=== PATIENT | female | born 1955 | race Caucasian/White ===

== ENCOUNTER 2018-11-19 19:34 | Emergency (ER) | payer OTHER ==
[~2018-11-19] VITALS: Ht 167.6 cm; Wt 68.0 kg
[~2018-11-19 19:34] MED LIST: ALBU90OI INH; AMOX500 PO; BENZ100A PO; BUSP5 PO; CITA20 PO; CYCL10 PO; Cleocin HCl300 MG PO; Crutch1 EACH MISC; DIPH50 PO; DOXY100 PO; HYDACE5 PO; HYDR1TAB94 PO; IBUP600 PO; Norco 5-325 Ta1 EACH PO; OMEP20ER PO; OXYACE5T PO; PRED20 PO; Pepcid40 MG PO; Percocet 5-3251 EACH PO; Ultram50 MG PO; Valium5 MG PO; Zithromax250 MG PO; [UNRECOGNIZED DRUG - REMARK]
== END 2018-11-19 20:36 | disposition home or self-care (01) ==
LOC: ER 19:34
DX: S61.012A Laceration without foreign body of left thumb without damage to nail, initial encounter (principal); F32.9 Major depressive disorder, single episode, unspecified; Z87.891 Personal history of nicotine dependence; Z88.5 Allergy status to narcotic agent; Z88.1 Allergy status to other antibiotic agents; Z79.899 Other long term (current) drug therapy; W26.0XXA Contact with knife, initial encounter
CPT/HCPCS: 12001; 99282-25

== ENCOUNTER 2021-04-22 08:08 | Day surgery (SDC) | payer OTHER ==
[~2021-04-22] VITALS: Ht 167.6 cm; Wt 71.8 kg
[2021-04-22] MEDS ORDERED: METR500 PO (09:21)
[2021-04-22] MEDS ORDERED: Buspirone HCl15 MG PO (09:21)
[2021-04-22] MEDS ORDERED: RIZATRIPTAN5 MG PO (09:21)
[2021-04-22] MEDS ORDERED: Celexa20 MG PO (09:22)
--- NOTE | 2021-04-22 09:22 | NUR ---
04/22/21 0922 Raghav Quigley & TORSTEN USED DURING PROCEDURE AT [facility] BY DR MENDOZA
[2021-04-22] MEDS ORDERED: Hydroxyzine HCl25 MG PO (09:23)
[2021-04-22] MEDS ORDERED: ROSU5 PO (09:23)
--- NOTE | 2021-04-22 11:17 | NUR ---
04/22/21 1117 MANDIE CHINCHILLA PT VOIDED WOUT PROBLEMS OR PROMTING, PRIOR TO DC 100CC CLEAR COPIOUS URINE VISUALIZED BY RN. END NOTE.ORSC
== END 2021-04-22 10:35 | disposition home or self-care (01) ==
LOC: ORSCSDS 08:08
PROVIDERS: Obstetrics & Gynecology
PROC: 0UBC7ZX Excision of Cervix, Via Natural or Artificial Opening, Diagnostic (ICD-10-PCS; principal; 2021-04-22 09:15)
DX: D06.9 Carcinoma in situ of cervix, unspecified (principal); N86 Erosion and ectropion of cervix uteri; K21.9 Gastro-esophageal reflux disease without esophagitis; F17.210 Nicotine dependence, cigarettes, uncomplicated; F41.8 Other specified anxiety disorders; Z79.899 Other long term (current) drug therapy
CPT/HCPCS: 88305; 88341; 88342; J1885; J2250; J2370; J2704; J3010; J7120

== ENCOUNTER 2021-05-27 11:17 | Day surgery (SDC) | payer OTHER ==
[2021-05-26 13:25] LABS: BASOPHILS ABSOLUTE AUTO 0.07 K/mm3 (0.00-0.23); BASOPHILS PERCENT AUTO 1 % (0-2); EOSINOPHILS ABSOLUTE AUTO 0.31 K/mm3 (0.00-0.68); EOSINOPHILS PERCENT AUTO 5 % (0-6); Hematocrit 42.6 % (33.0-51.0); Hemoglobin 13.9 g/dL (11.5-16.0); IMMATURE GRAN ABSOLUTE AUTO 0.01 K/mm3 (0.00-0.10); IMMATURE GRAN PERCENT AUTO 0 % (0-1); LYMPHOCYTES ABSOLUTE AUTO 2.29 K/mm3 (0.84-5.20); LYMPHOCYTES PERCENT AUTO 40 % (21-46); MONOCYTES ABSOLUTE AUTO 0.35 K/mm3 (0.16-1.47); MONOCYTES PERCENT AUTO 6 % (4-13); Mean Corpuscular HGB 34.5 pg (26.0-34.0); Mean Corpuscular HGB Conc 32.6 g/dL (31.5-36.5); Mean Corpuscular Volume 106 fL (80-100); Mean Platelet Volume 9.5 fL (9.1-12.4); NEUTROPHILS ABSOLUTE AUTO 2.75 K/mm3 (1.96-9.15); NEUTROPHILS PERCENT AUTO 48 % (41-73); Platelet Count 366 K/mm3 (150-400); RDW Coefficient Variation 12.4 % (11.7-14.2); RDW Standard Deviation 48.7 fL (35.1-46.3); Red Blood Cell Count 4.03 M/mm3 (3.80-5.20); White Blood Cell Count 5.78 K/mm3 (4.00-11.30)
[2021-05-26 15:12] LABS: Anion Gap 8 mmol/L (6-16); Blood Urea Nitrogen 11 mg/dL (8-24); Bun/Creatinine Ratio 13.1 (12.0-20.0); CO2, Blood 24 mmol/L (21-32); Chloride, Blood 106 mmol/L (98-108); Creatinine, Blood 0.84 mg/dL (0.40-1.00); Glomerular Filtration Rate >60 (60-); Glucose, Blood 107 mg/dL (70-99); Potassium, Blood 4.2 mmol/L (3.5-5.5); Sodium, Blood 138 mmol/L (136-145)
[~2021-05-27] VITALS: Ht 167.6 cm; Wt 70.8 kg
[~2021-05-27 11:17] MED LIST changes: +Buspirone HCl15 MG PO; +Celexa20 MG PO; +Hydroxyzine HCl25 MG PO; +METR500 PO; +RIZATRIPTAN5 MG PO; +ROSU5 PO
[2021-05-27] MEDS ORDERED: MULVITA PO (12:35)
--- NOTE | 2021-05-27 12:38 | NUR ---
Ambulatory in Day Surgery. History, Chart, Medications and Allergies reviewed before start of procedure.Lungs clear T/O to Auscultation. Patient confirms NPO status and agrees with scheduled surgery. Pre-Op teaching done. Pt verbalizes understanding. Patient States Post-Procedure ride home has been arranged.
--- NOTE | 2021-05-27 13:06 | NUR ---
Ambulatory in Day Surgery History, Chart, Medications and Allergies reviewed before start of procedure. Lungs clear T/O to Auscultation. Patient confirms NPO status and agrees with scheduled surgery. Pre-Op teaching done. Pt verbalizes understanding. PT'S AT SIDE:GERDA Urbina".
--- NOTE | 2021-05-27 17:00 | NUR ---
PT PROCEDURE ABORTED BY DR LEEANNA CONFIRMED THAT SHE WILLCALL PT TOMORROW TO DISCUSS PROCEDURE AND OPTIONS PT GIVEN DISCHARGE INSTRUCTIONS AND PO PAIN MED PT SITES ABD C/D/I Discharge instructions reviewed with patient. Patient verbalizes understanding. Copy given to patient to take home. Patient States Post-Procedure ride home has been arranged. Discharged via wheelchair to private car for ride home.
--- NOTE | 2021-06-01 10:30 | NUR ---
06/01/21 1030 Amaris Pérez VERIFICATIONS: EDIT CHART.
== END 2021-05-27 23:33 | disposition home or self-care (01) ==
LOC: ORSCMMR 11:17 → ORD 12:30 → ORSCMMR 23:33
PROVIDERS: Obstetrics & Gynecology
PROC: 0UJD4ZZ Inspection of Uterus and Cervix, Percutaneous Endoscopic Approach (ICD-10-PCS; principal; 2021-05-27 12:30)
DX: C53.0 Malignant neoplasm of endocervix (principal); N88.2 Stricture and stenosis of cervix uteri; N81.5 Vaginal enterocele; N99.71 Accidental puncture and laceration of a genitourinary system organ or structure during a genitourinary system procedure; F17.210 Nicotine dependence, cigarettes, uncomplicated; K21.9 Gastro-esophageal reflux disease without esophagitis; Z79.899 Other long term (current) drug therapy
CPT/HCPCS: 36415; 80048; 84703; 85025; 86850; 86900; 86901; A9270; J0690; J1100; J1885; J2250; J2405; J2704; J2710; J3010; J7120

== ENCOUNTER 2022-09-09 12:28 | Emergency (ER) | payer OTHER ==
[~2022-09-09] VITALS: Ht 167.6 cm; Wt 68.0 kg
[~2022-09-09 12:28] MED LIST changes: +MULVITA PO
[2022-09-09 12:44] VITALS: BP 138/78
[2022-09-09] MEDS ORDERED: HYDR1TAB94 PO (13:24)
== END 2022-09-09 13:26 | disposition home or self-care (01) ==
LOC: ER 12:28
DX: S29.011A Strain of muscle and tendon of front wall of thorax, initial encounter (principal); Z85.41 Personal history of malignant neoplasm of cervix uteri; Z88.5 Allergy status to narcotic agent; Z91.048 Other nonmedicinal substance allergy status; Z87.891 Personal history of nicotine dependence; X50.1XXA Overexertion from prolonged static or awkward postures, initial encounter
CPT/HCPCS: 71101; 99283-25

== ENCOUNTER 2023-04-07 09:14 | Emergency (ER) | payer OTHER ==
[~2023-04-07] VITALS: Ht 167.6 cm; Wt 69.0 kg
[2023-04-07 10:38] LABS: BASOPHILS ABSOLUTE AUTO 0.04 K/mm3 (0.00-0.23); BASOPHILS PERCENT AUTO 1 % (0-2); EOSINOPHILS ABSOLUTE AUTO 0.41 K/mm3 (0.00-0.68); EOSINOPHILS PERCENT AUTO 5 % (0-6); Hematocrit 47.3 % (33.0-51.0); Hemoglobin 15.8 g/dL (11.5-16.0); IMMATURE GRAN ABSOLUTE AUTO 0.03 K/mm3 (0.00-0.10); IMMATURE GRAN PERCENT AUTO 0 % (0-1); LYMPHOCYTES ABSOLUTE AUTO 1.22 K/mm3 (0.84-5.20); LYMPHOCYTES PERCENT AUTO 14 % (21-46); MONOCYTES ABSOLUTE AUTO 0.57 K/mm3 (0.16-1.47); MONOCYTES PERCENT AUTO 7 % (4-13); Mean Corpuscular HGB 35.6 pg (26.0-34.0); Mean Corpuscular HGB Conc 33.4 g/dL (31.5-36.5); Mean Corpuscular Volume 107 fL (80-100); Mean Platelet Volume 9.8 fL (9.1-12.4); NEUTROPHILS ABSOLUTE AUTO 6.43 K/mm3 (1.96-9.15); NEUTROPHILS PERCENT AUTO 74 % (41-73); Platelet Count 285 K/mm3 (150-400); RDW Coefficient Variation 11.9 % (11.7-14.2); RDW Standard Deviation 46.9 fL (35.1-46.3); Red Blood Cell Count 4.44 M/mm3 (3.80-5.20)
[2023-04-07 10:58] LABS: Bun/Creatinine Ratio 16.7 (12.0-20.0); Calcium, Blood 9.2 mg/dL (8.5-10.1); Creatinine, Blood 0.78 mg/dL (0.40-1.00); Potassium, Blood 4.2 mmol/L (3.5-5.5)
[2023-04-07 11:55] LABS: Influenza A, PCR NEGATIVE (NEGATIVE); Influenza B, PCR NEGATIVE (NEGATIVE); SARS-Cov-2 (COVID-19) PCR, MMC NEGATIVE (NEGATIVE)
[2023-04-07 11:56] LABS: Resp Syncytial Virus, PCR POSITIVE (NEGATIVE)
[2023-04-07 12:23] VITALS: BP 133/67
[2023-04-07] MEDS ORDERED: PRED20 PO (12:43)
[2023-04-07] MEDS ORDERED: ALBU90OI INH (12:43)
== END 2023-04-07 13:02 | disposition home or self-care (01) ==
LOC: ER 09:14
PROVIDERS: Student in an Organized Health Care Education/Training Program
DX: J20.5 Acute bronchitis due to respiratory syncytial virus (principal); J45.909 Unspecified asthma, uncomplicated; Z87.891 Personal history of nicotine dependence; Z79.899 Other long term (current) drug therapy; Z88.5 Allergy status to narcotic agent; Z88.1 Allergy status to other antibiotic agents; Z91.018 Allergy to other foods
CPT/HCPCS: 0241U; 71046; 80048; 85025; 93005; 93010; 94640; 94664; 96374; 99284-25; J1885; J7512

== ENCOUNTER → 2024-03-15 | Outpatient (CLI) | payer OTHER | LOC: LAB 17:25 → LAB SHORT 17:25 | DX: Z20.818 Contact with and (suspected) exposure to other bacterial communicable diseases (principal) | CPT/HCPCS: 87081 ==